=== PATIENT | male | born 1970 | race Caucasian/White ===

== ENCOUNTER 2021-04-13 11:50 | Emergency (ER) | payer OTHER, SELFPAY ==
[2021-04-13 11:59] VITALS: BP 168/89; PULSE 97; RESP 18; TEMP 36.6; O2SAT 96; BMI 35.5
--- NOTE | 2021-04-13 15:05 | ED_ITS ---
HPI - General Adult General Chief complaint: General Medical Stated complaint: left hand weakness Time Seen by Provider: 04/13/21 14:52 Source: patient Mode of arrival: ambulatory Limitations: no limitations History of Present Illness MD complaint: L hand pain and tingling, leg pain Onset (ago): month(s) (1.5) Location: left and upper extremity Radiation: non-radiation Severity: moderate Quality: aching, dull and constant Pain Consistency: constant Relieving factors: none Exacerbating factors: movement Associated symptoms: weakness (it feels weak and tingles at times) Treatments prior to arrival: none Related Data Previous Rx's Medication Instructions Recorded alcohol swabs [Alcohol Prep Pads] 1 pad TOPICAL TID-QID PRN #200 ea 04/13/21 blood sugar diagnostic [Accu-Chek #100 ea 04/13/21 Guide test strips] blood-glucose meter [Accu-Chek #1 ea 04/13/21 Guide Glucose Meter] gabapentin 300 mg PO BID #60 cap 04/13/21 lancets [Accu-Chek Softclix #100 ea 04/13/21 Lancets] metformin 500 mg PO BID #60 tab 04/13/21 Allergies Allergy/AdvReac Type Severity Reaction Status Date / Time No Known Allergies Allergy Mild NONE Unverified 07/14/20 15:56 Review of Systems Review of Systems: Constitutional : No Fever, No Chills ENT/Mouth : No Ear Pain, No Hoarseness, No sore throat Eyes: No Eye Pain, No Swelling, No Redness, No Foreign Body Cardiovascular : No Chest Pain, No SOB Respiratory : No Cough, No Dyspnea Gastrointestinal : No Nausea, No Vomiting, No Diarrhea, No abdominal Pain Genitourinary : No Dysuria, No Hematuria Musculoskeletal : positive joint pain, pos Myalgias, No Joint Swelling Skin : No Skin lacerations, No rash Neuro : pos hand Weakness, pos Numbness, No Loss of Consciousness, No Dizziness, No Headache Psych : No Anxiety/Panic, No Depression Heme/Lymph: no easy bruising, no Lymphadenopathy Endocrine : No Polyuria, No Polydipsia All other systems reviewed and are negative FOR[facility]LY [facility], [facility] Past Medical History Attestation statement: The following information was validated with the patient. Medical History Prediabetes Social History Social History (Updated 04/13/21 @ 15:08 by Karen Pope DO) Alcohol intake: never Patient Tobacco Use Status: Never used Tobacco Advance Directives: Yes Advance Directives Information Provided: Yes Advance Directives on File: No Physical Exam Vital Signs: Vital Signs: Last Vital Signs Temp 97.8 F 04/13/21 11:59 Pulse 97 04/13/21 11:59 Resp 18 04/13/21 11:59 BP 168/89 H 04/13/21 11:59 Pulse Ox 96 04/13/21 11:59 Body Mass Index 35.5 Appearance: Alert. Oriented X3. No acute distress. Eyes: Pupils equal, round and reactive to light. ENT: Pharynx normal. Neck: Normal inspection. Neck supple. CVS: Normal heart rate and rhythm. Pulses normal. Respiratory: No respiratory distress. Breath sounds normal. Abdomen: Soft and nontender. Skin: Skin warm and dry. Normal skin color. Normal skin turgor. Extremities: No lower extremity edema. No calf ttp LUE ttp over carpal tunnel with swelling noted, distal NV intact, strength 4/5 in L hand + phalens and tinels sign, no neck pain neg spurling's maneuver Neuro: Oriented X 3. No motor deficit. No sensory deficit. Course Course Course Narrative: will start on gabepentin and refer to his PCP metformin 500mg BID until he sees PCP Procedures Orthopedic Splinting/Casting Injury #1: Side: left Upper Extremity Injury Location: wrist Upper Extremity Immobilizer: wrist splint Medical Decision Making [facility] Narrative Medical decision making narrative: 50 yo male told he was prediabetic 2 years ago comes in today with months of vague LE tingling and pains also c/o 1.5 months of L hand pain and tingling and now he feels weak, his left hand seems consistent by history and physical exam to be carpal tunnel will start with splint and likely anti inflammatories, pain medications, at this time for LE azar l obtain basic labs, lytes, TSH and possible hemoglobin A1c given his multiple vague complaints and neuropathic like pain. Lab Data Result diagrams: 04/13/21 15:18 04/13/21 15:18 Labs: Lab Results 04/13/21 04/13/21 04/13/21 Range/Units 15:18 15:18 15:18 WBC 7.9 (4.8-10.8) X10*3/uL RBC 5.38 (4.60-5.80) X10*6/uL Hgb 16.2 (14.0-18.0) g/dl Hct 45.6 (42-52) % MCV 84.8 (80-98) fL MCH 30.1 (27.0-33.0) pg MCHC 35.5 (31.0-36.0) g/dl RDW 11.9 (11.0-16.0) % Plt Count 240 (160-400) X10*3/uL MPV 10.1 (9.4-12.4) fL Immature Gran % (Auto) 0.3 (0.0-0.4) % Neut % (Auto) 61.2 (45-73) % Lymph % (Auto) 28.6 (20-40) % Will % (Auto) 8.2 (2-11) % Eos % (Auto) 0.9 (0-4) % Baso % (Auto) 0.8 (0-2) % Lymph # (Auto) 2.3 (1.2-4.9) X10*3/uL Will # (Auto) 0.7 (0.1-1.2) X10*3/uL Eos # (Auto) 0.1 (0.0-0.4) X10*3/uL Baso # (Auto) 0.1 (0.0-0.2) X10*3/uL Abs Immat Gran (auto) 0.02 (0.00-0.03) X10*3/uL Absolute Neuts (auto) 4.9 (2.0-8.3) X10*3/uL Absolute Nucleated RBC 0.000 (0.0-0.012) X10*3/uL Nucleated RBC % (auto) 0.0 (0.0-0.2) /100WBC Sodium 135 (135-145) mmol/L Potassium 4.2 (3.3-5.1) mmol/L Chloride 100 (96-108) mmol/L Carbon Dioxide 24 (22-29) mmol/L Anion Gap 15 (12-20) BUN 17 H (9-16) mg/dL Creatinine 0.84 (0.5-1.4) mg/dL Estim Creat Clear Calc 164.1 Estimated GFR > 60 Random Glucose 335 H (60-115) mg/dL Estimat Average Glucose 298 mg/dL Hemoglobin A1c % 12.0 % Calcium 9.5 (8.4-10.2) mg/dL Magnesium 1.9 (1.6-2.6) mg/dL Total Bilirubin 1.1 H (0.0-1.0) mg/dL Direct Bilirubin 0.3 (0.0-0.5) mg/dL AST 14 (5-37) U/L ALT 20 (0-40) U/L Alkaline Phosphatase 80 (39-117) U/L Total Creatine Kinase 94 (38-174) U/L Total Protein 7.8 (6.5-8.0) g/dL Albumin 4.3 (3.5-5.0) g/dL Discharge Plan Discharge Clinical Impression: Diabetes Qualifiers: Diabetes mellitus type: type 2 Diabetes mellitus superintendent container terminal insulin use: without chcf use Diabetes mellitus complication status: without complication Qualified Code(s): E11.9 - Type 2 diabetes mellitus without complications Acute carpal tunnel syndrome Qualifiers: Laterality: left Qualified Code(s): G56.02 - Carpal tunnel syndrome, left upper limb Patient Disposition: Home, Self-Care Instructions: Type 2 Diabetes in Adults: New Diagnosis (ED), Paresthesia (ED), Diabetes and Nutrition (ED) Additional Instructions: return to ED for any worsening symptoms or concerns see your doctor as soon as possible Prescriptions: New metformin 500 mg tablet 500 mg PO BID Qty: 60 RF: 1 gabapentin 300 mg capsule 300 mg PO BID Qty: 60 RF: 0 (DME) blood-glucose meter [Accu-Chek Guide Glucose Meter] Misc See Rx Instructions .ROUTE .MEDSUPPLY Qty: 1 RF: 0 (DME) Accu-Chek Guide test strips Strip See Rx Instructions .ROUTE .MEDSUPPLY Qty: 100 RF: 0 (DME) lancets [Accu-Chek Softclix Lancets] Misc See Rx Instructions .ROUTE .MEDSUPPLY Qty: 100 RF: 0 alcohol swabs [Alcohol Prep Pads] Pads, Medicated 1 pad topical TID-QID PRN (Reason: skin cleansing) Qty: 200 RF: 0 Referrals: Po,[place] MD [Primary Care Provider] - 1 day Stand Alone Forms: Work/School Release
[2021-04-13 15:23] LABS: MANUAL DIFF FLAG NO
[2021-04-13 15:25] LABS: Basophils Absolute Auto 0.1 X10*3/uL (0.0-0.2); Basophils Percent Auto 0.8 % (0-2); Eosinophils Absolute Auto 0.1 X10*3/uL (0.0-0.4); Eosinophils Percent Auto 0.9 % (0-4); Hematocrit 45.6 % (42-52); Hemoglobin 16.2 g/dl (14.0-18.0); Imm Gran Abs Auto 0.02 X10*3/uL (0.00-0.03); Imm Gran Pct Auto 0.3 % (0.0-0.4); Lymphocytes Absolute Auto 2.3 X10*3/uL (1.2-4.9); Lymphocytes Percent Auto 28.6 % (20-40); Mean Corpuscular HGB Conc 35.5 g/dl (31.0-36.0); Mean Corpuscular Hemoglobin 30.1 pg (27.0-33.0); Mean Corpuscular Volume 84.8 fL (80-98); Mean Platelet Volume 10.1 fL (9.4-12.4); Monocytes Absolute Auto 0.7 X10*3/uL (0.1-1.2); Monocytes Percent Auto 8.2 % (2-11); Neutrophils Absolute Auto 4.9 X10*3/uL (2.0-8.3); Neutrophils Percent Auto 61.2 % (45-73); Platelet Count 240 X10*3/uL (160-400); Red Blood Count 5.38 X10*6/uL (4.60-5.80); Red Cell Distribution Width 11.9 % (11.0-16.0); White Blood Count 7.9 X10*3/uL (4.8-10.8)
[2021-04-13 15:32] LABS: Estimated Average Glucose 298 mg/dL
[2021-04-13 15:47] LABS: Alanine Aminotransferase 20 U/L (0-40); Albumin Level 4.3 g/dL (3.5-5.0); Alkaline Phosphatase 80 U/L (39-117); Anion Gap 15 (12-20); Aspartate Amino Transferase 14 U/L (5-37); Bilirubin Direct 0.3 mg/dL (0.0-0.5); Bilirubin Total 1.1 mg/dL (0.0-1.0); Blood Urea Nitrogen 17 mg/dL (9-16); Calcium 9.5 mg/dL (8.4-10.2); Carbon Dioxide 24 mmol/L (22-29); Chloride 100 mmol/L (96-108); Creatinine Clr Calc Pharmacy 164.1; Estimated Glomerular Filt Rate > 60; Glucose Random 335 mg/dL (60-115); Magnesium 1.9 mg/dL (1.6-2.6); Potassium 4.2 mmol/L (3.3-5.1); Sodium 135 mmol/L (135-145); Total Protein 7.8 g/dL (6.5-8.0)
--- NOTE | 2021-04-13 16:21 | PC.NURSE ---
this rn assisting with discharge. pt is a new onset type 2 diabetic. he has a left velcro wrist splint in place. discharge instructions and prescriptions were reviewed with the pt and he was in agreement with care plan
== END 2021-04-13 16:26 | disposition home or self-care (01) ==
PROVIDERS: Emergency Provider Emergency Medicine; PCP Internal Medicine
DX: G56.02 Carpal tunnel syndrome, left upper limb (principal); E11.9 Type 2 diabetes mellitus without complications
CPT/HCPCS: 36415; 80048; 80076; 82550; 83036; 83735; 84443; 85025; 99283

== ENCOUNTER 2021-10-10 13:54 | Outpatient (REF) | payer OTHER, SELFPAY ==
--- NOTE | ~2021-10-10 | XR_ITS ---
EXAMINATION: XR CHEST CLINICAL INFORMATION: Fracture of right rib COMPARISON: 02/02/2020 TECHNIQUE: 2 views of the chest were obtained. FINDINGS: Normal symmetric lung volumes. No parenchymal consolidation. Lingular subsegmental atelectasis. No pleural effusion. No pneumothorax. Cardiomediastinal silhouette and pulmonary vascularity are within normal limits. No acute osseous abnormalities. XR/XR chest 2V IMPRESSION: No displaced rib fractures. Subsegmental atelectasis within lingula.
== END 2021-10-10 13:55 | disposition home or self-care (01) ==
LOC: HO.HMGCX 13:54
PROVIDERS: PCP Physician Assistant; Visit Provider Physician Assistant
DX: S22.31XD Fracture of one rib, right side, subsequent encounter for fracture with routine healing (principal)
CPT/HCPCS: 71046

== ENCOUNTER 2021-11-08 23:57 | Emergency (ER) | payer OTHER, SELFPAY ==
--- NOTE | 2021-11-09 00:05 | ED_ITS ---
HPI - CPR General Stated Complaint: Cardiac arrest Time Seen by Provider: 11/09/21 00:05 Source: EMS Mode of arrival: EMS Limitations: physical limitation History of Present Illness HPI narrative: Patient was a witnessed Cardiac arrest, down time at least 35 minutes, initially was shocked 3 times, received multiple rounds of epinephrine arrives with active ACLS and compressions in asystole. Patient is a few weeks out from having [facility]BO [facility]IRST[place] complaint: collapsed during rest Onset (ago): minute(s) Timing confirmed by: other (EMS) Place: home Bystander CPR performed: Yes AED applied by bystander/or first assist registered nurse: Yes Shock advised: Yes Number of shocks delivered: 3 Initial findings in the field: unresponsive and other rhythm (asystole) ROSC in the field: No Related Data Home Medications Medication Instructions Recorded Confirmed insulin glargine 100 unit/mL (3 30 unit SUBCUT QPM ml 10/05/21 10/31/21 mL) subcutaneous pen (Lantus Solostar U-100 Insulin) Previous Rx's Medication Instructions Recorded alcohol swabs (Alcohol Prep Pads) 1 pad TOPICAL TID-QID PRN #200 ea 04/13/21 blood sugar diagnostic (Accu-Chek #100 ea 04/13/21 Guide test strips) blood-glucose meter (Accu-Chek #1 ea 04/13/21 Guide Glucose Meter) lancets (Accu-Chek Softclix #100 ea 04/13/21 Lancets) flash glucose scanning reader #1 ea 06/13/21 (FreeStyle Marin 14 Day Barlow) gabapentin 300 mg capsule 300 mg PO BID #60 cap 06/13/21 pen needle, diabetic 32 gauge x #50 ea 06/13/21 (BD Ultra-Fine Zeny Pen Needle) albuterol sulfate 90 mcg/actuation 2 inh INHALATION QID PRN 30 Days 10/05/21 aerosol inhaler #8.5 g flash glucose sensor (FreeStyle #1 ea 10/05/21 Marin 14 Day Sensor) lisinopril 10 mg tablet 10 mg PO DAILY 30 Days #30 tab 10/16/21 metformin 1,000 mg tablet 1,000 mg PO BID 30 Days #60 tab 10/16/21 hydroxyzine HCl 25 mg tablet 25 mg PO BID 15 Days #30 tab 10/31/21 sertraline 100 mg tablet (Zoloft) 100 mg PO DAILY 30 Days #30 tab 10/31/21 Allergies Allergy/AdvReac Type Severity Reaction Status Date / Time No Known Allergies Allergy Mild NONE Verified 10/31/21 14:27 Review of Systems Review of Systems: Yes Unobtainable due to mental condition [facility] Past Medical History Medical History Prediabetes Social History Social History Housing: House Alcohol intake: never Patient Tobacco Use Status: Never used Tobacco e-Cigarette/Vaping Use: Never Used Advance Directives: No service: No Current occupational status: employed Physical Exam Const: Other: Obese, unresponsive, CPR in progress, VIDYA LMA in mouth HENMT: Other: fixed and dilated Chest: Other: no heart beat Resp: Other: with ambu bag GI: Other: obese soft Neuro: Other: no movement Psych: Other: unresponsive Course Reevaluation(s) Reevaluation #1: Patient presented in asystole, bedside ultrasound shows no cardiac movement. Code called at 11:58pm Time: 00:21 Discharge Plan Discharge Clinical Impression: Cardiac arrest Patient Disposition: on Arrival Prescriptions: No Action lisinopril 10 mg tablet 10 mg PO DAILY 30 Days Qty: 30 RF: 3 metformin 1,000 mg tablet 1,000 mg PO BID 30 Days Qty: 60 RF: 3 (DME) blood-glucose meter [Accu-Chek Guide Glucose Meter] Misc See Rx Instructions .ROUTE .MEDSUPPLY Qty: 1 RF: 0 (DME) Accu-Chek Guide test strips Strip See Rx Instructions .ROUTE .MEDSUPPLY Qty: 100 RF: 0 (DME) lancets [Accu-Chek Softclix Lancets] Misc See Rx Instructions .ROUTE .MEDSUPPLY Qty: 100 RF: 0 alcohol swabs [Alcohol Prep Pads] Pads, Medicated 1 pad topical TID-QID PRN (Reason: skin cleansing) Qty: 200 RF: 0 (DME) FreeStyle Marin 14 Day Barlow Misc See Rx Instructions .Route Qty: 1 RF: 3 gabapentin 300 mg capsule 300 mg PO BID Qty: 60 RF: 3 (DME) pen needle, diabetic [BD Ultra-Fine Zeny Pen Needle] 32 gauge x 5/32 needle See Rx Instructions .ROUTE .MEDSUPPLY Qty: 50 RF: 3 Lantus Solostar U-100 Insulin 100 unit/mL (3 mL) insulin pen 30 unit subcut QPM RF: 0 albuterol sulfate 90 mcg/actuation HFA aerosol inhaler 2 inh inhalation QID PRN (Reason: shortness of breath or wheezing) 30 Days Qty: 8.5 RF: 0 (DME) FreeStyle Marin 14 Day Sensor Kit See Rx Instructions .Route Qty: 1 RF: 3 hydroxyzine HCl 25 mg tablet 25 mg PO BID 15 Days Qty: 30 RF: 0 sertraline [Zoloft] 100 mg tablet 100 mg PO DAILY 30 Days Qty: 30 RF: 3
== END 2021-11-09 03:00 | disposition expired ==
PROVIDERS: Emergency Provider Emergency Medicine
DX: I46.9 Cardiac arrest, cause unspecified (principal); E11.9 Type 2 diabetes mellitus without complications; E66.9 Obesity, unspecified; J45.909 Unspecified asthma, uncomplicated; I10 Essential (primary) hypertension; Z86.16 Personal history of COVID-19
CPT/HCPCS: 99282; 99284